=== PATIENT | male | born 1995 | race Caucasian/White ===

== ENCOUNTER 2020-05-05 00:22 | Emergency (ER) | payer OTHER ==
[~2020-05-05] VITALS: Ht 162.6 cm; Wt 75.1 kg
[2020-05-05 00:40] VITALS: Ht 162.6 cm; Wt 75.1 kg
[2020-05-05 02:27] VITALS: BP 132/79
== END 2020-05-05 02:27 | disposition home or self-care (01) ==
LOC: ED 00:22
DX: L02.31 Cutaneous abscess of buttock (principal)
CPT/HCPCS: J2001

== ENCOUNTER 2020-07-04 10:09 | Emergency (ER) | payer OTHER | END 2020-07-04 10:20 | disposition left against medical advice (07) | LOC: ED 10:09 | DX: Z53.21 Procedure and treatment not carried out due to patient leaving prior to being seen by health care provider (principal) ==